=== PATIENT | male | born 1955 | race Caucasian/White ===

== ENCOUNTER → 2020-06-24 | Outpatient (CLI) | payer MEDICARE ==
--- NOTE | 2020-06-24 16:00 | RAD ---
Right lower extremity arterial duplex ultrasound study with bilateral lower extremity ABIs for nonhealing ulcer to the right plantar foot, fifth toe side. TECHNIQUE AND FINDINGS: Real-time grayscale and color spectral Doppler evaluation of the arteries of the right lower extremity is performed. The RUTH on the right is 1.13 and on the left 1.14. The right common femoral, deep femoral, superficial femoral, and popliteal arteries are all patent, with biphasic flow in the dorsalis pedis, superficial femoral, and popliteal arteries, and triphasic flow within the common femoral artery. Minimal atherosclerosis is seen on grayscale imaging in these distributions. The proximal posterior tibial and peroneal arteries are patent and biphasic as well, as is the distal posterior tibial artery at the ankle, all with minimal atherosclerosis. The proximal anterior tibial artery is patent and biphasic, with suggestion of diminished flow. There is occlusion of the mid anterior tibial artery extending into the distal anterior tibial artery. The dorsalis pedis artery is patent with reversed flow ascending into the lateral distal calf, likely representing reconstituted flow from the patent posterior tibial artery. IMPRESSION: 1. 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 Widely patent [id number] inflow. Electronically signed by: Clovis Lozada MD (06/24/2020 3:57 PM) [id number]
== END | disposition home or self-care (01) ==
LOC: US 08:24
PROVIDERS: ATTEND Emergency Medicine Undersea and Hyperbaric Medicine
DX: S91.301D Unspecified open wound, right foot, subsequent encounter (principal); I74.3 Embolism and thrombosis of arteries of the lower extremities; I70.201 Unspecified atherosclerosis of native arteries of extremities, right leg; X58.XXXD Exposure to other specified factors, subsequent encounter
CPT/HCPCS: 93922; 93926

== ENCOUNTER → 2021-06-30 | Outpatient (CLI) | payer MEDICARE ==
[2021-06-26 13:19] VITALS: BP 149/79
[~2021-06-30] MED LIST: ALOE25CA PO; ASPI81TA59 PO; ATOR40TA59 PO; CHOL100014 PO; CHOL5000 PO; CINN500C2 PO; CRAN500T3 PO; CURC10PO MC; DAPT350V IV; ERGO500089 PO; ERTA1VIA16 IJ; GLIM1TAB PO; HAWT500C PO; HEMP OIL PO; LACT100C2 PO; LISI20TA PO; LUTE1CAP5 PO; LYSI500T24 PO; METH1TAB47 PO; METO-247 PO; MULT400T5 PO; OMEG100020 PO; PINE BARK EXTRACT PO; PROT420P PO; PYRI200T3 PO; SOYB50CA PO; TAUR1000 PO; THIA100T43 PO; ZINC50TA39 PO; [UNRECOGNIZED DRUG - CODE] PO; [UNRECOGNIZED DRUG - OTHER] PO
--- NOTE | 2021-06-30 12:20 | NUR ---
PT HERE TO OPD WITH ORDERS FROM DR HUANG FOR ORDERS TO REMOVE CONDOM CATHETER AND PLACE MÉNDEZ CATHETER INSTEAD. PT HERE TO OPD VIA WC. AREA PREPPED THOROUGHLY USING STERILE TECHNIQUE. 18 KYRGYZ MÉNDEZ CATHETER INSERTED WITHOUT DIFFICULTY WITH GOOD URINE RETURN. 10CC SALINE USED FOR PROPER BALLOON INFLATION. MÉNDEZ INTACT. 800CC URINE NOTED IN BAG RIGHT AWAY. INSTRUCTED ON PROPER CARE OF CATHETER AND EMPTYING OF BAG.INSTRUCTIONS ALSO GIVEN TO ABOUT SIGNS AND SYMPTOMS OF INFECTION. PT AND VOICED UNDERSTANDING. PT LEFT VIA WC WITH .
== END | disposition home or self-care (01) ==
LOC: OPS 11:45
PROVIDERS: ATTEND Podiatrist
DX: Z46.6 Encounter for fitting and adjustment of urinary device (principal); I48.91 Unspecified atrial fibrillation; E11.9 Type 2 diabetes mellitus without complications; Z79.82 Long term (current) use of aspirin; Z79.84 Long term (current) use of oral hypoglycemic drugs; Z79.899 Other long term (current) drug therapy; Z98.890 Other specified postprocedural states; Z88.1 Allergy status to other antibiotic agents; Z88.2 Allergy status to sulfonamides; Z88.8 Allergy status to other drugs, medicaments and biological substances
CPT/HCPCS: 51702